=== PATIENT | female | born 1980 | race Caucasian/White ===

== ENCOUNTER 2017-07-26 11:02 | Emergency (ER) | payer SELFPAY ==
--- NOTE | 2017-07-26 12:19 | UC ---
General HPI - HPI Summary HPI Summary: [facility] the [facility] after being diagnosed with bipolar disorder patient reports helped her very much patient's been out of [facility] 3 days.. Patient states she was not released with medications she is now beginning to feel Symptoms of withdrawal, patient has doctor's appointment in [place] with a psychiatrist but it's not for 2 more weeks. We called the [facility] and confirmed the patient was released without medications confirmed her medications and medication doses - History of Current Complaint Chief Complaint: UCMedRefill Stated Complaint: MED REFILL Time Seen by Provider: 07/26/17 11:20 Hx Obtained From: Patient Onset/Duration: Gradual Onset, Lasting Days Pain Intensity: 0 - Allergy/Home Medications Allergies/Adverse Reactions: Allergies Allergy/AdvReac Type Severity Reaction Status Date / Time No Known Allergies Allergy Verified 07/26/17 11:23 Home Medications: Home Medications Bupropion XL* [Wellbutrin XL *] 150 mg PO DAILY 07/26/17 [History Confirmed ] LoraTADine TAB(NF) [Claritin 10 MG TAB(NF)] 10 mg PO DAILY 07/26/17 [History Confirmed 07/26/17] Meloxicam [Mobic] 15 mg PO 07/26/17 [History] OLANZapine [Zyprexa] 7.5 mg PO BEDTIME 07/26/17 [History Confirmed 07/26/17] PMH/Surg Hx/FS Hx/Imm Hx - Additional Past Medical History Additional PMH: 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 Previously Healthy: No Psychological History: Bipolar Disorder - Surgical History Surgical History: Yes Surgery Procedure, Year, and Place: tubal ligation - Family History Known Family History: Positive: None - Social History Occupation: Unemployed Lives: With Family Alcohol Use: None Substance Use Type: None Smoking Status (MU): Heavy Every Day Tobacco Smoker Review of Systems Constitutional: Negative Skin: Negative Eyes: Negative ENT: Negative Respiratory: Negative Cardiovascular: Negative Gastrointestinal: Negative Genitourinary: Negative Motor: Negative Neurovascular: Negative Musculoskeletal: Negative Neurological: Negative Psychological: Negative Is Patient Immunocompromised?: No All Other Systems Reviewed And Are Negative: Yes Physical Exam Triage Information Reviewed: Yes Appearance: Well-Appearing, No Pain Distress, Well-Nourished Vital Signs: Initial Vital Signs Temp 98.7 F 07/26/17 11:20 Pulse 88 07/26/17 11:20 Resp 18 07/26/17 11:20 BP 121/59 07/26/17 11:20 Pulse Ox 100 07/26/17 11:20 Vital Signs Reviewed: Yes Eye Exam: Normal Eyes: Positive: Conjunctiva Clear ENT Exam: Normal ENT: Positive: Normal ENT inspection, Hearing grossly normal. Negative: Trismus , Muffled voice, Hoarse voice Dental Exam: Normal Neck exam: Normal Neck: Positive: Supple, Nontender Respiratory Exam: Normal Respiratory: Positive: Chest non-tender, No respiratory distress, No accessory muscle use Cardiovascular Exam: Normal Cardiovascular: Positive: RRR - No, Pulses Normal, Brisk Capillary Refill Musculoskeletal Exam: Normal Musculoskeletal: Positive: Strength Intact, ROM Intact, No Edema Neurological Exam: Normal Neurological: Positive: Alert, Muscle Tone Normal Psychological Exam: Normal Psychological: Positive: Normal Response To Family Skin Exam: Normal Course/Dx - Course Course Of Treatment: meds refilled for one month, information and referral to treatment options in [facility] - Differential Dx - Multi-Symptom Provider Diagnoses: med refill, 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 One Day at A Time! - Billing Disposition and Condition Condition: STABLE Disposition: HOME
== END 2017-07-26 12:31 | disposition home or self-care (01) ==
LOC: UCEAST 11:02
DX: F11.21 Opioid dependence, in remission (principal); F31.9 Bipolar disorder, unspecified; Z76.0 Encounter for issue of repeat prescription; F17.200 Nicotine dependence, unspecified, uncomplicated
CPT/HCPCS: 99202; G0463

== ENCOUNTER 2019-06-09 10:01 | Emergency (ER) | payer OTHER ==
[2019-06-09] MEDS ORDERED: Diazepam TAB(*) 5 MG PO ONE (11:02)
[2019-06-09] MEDS ORDERED: Ketorolac INJ* 30 MG/ML 1 ML VIAL IV PUSH ONE (11:03)
--- NOTE | 2019-06-09 11:04 | ED ---
Complex/Multi-Sys Presentation - HPI Summary HPI Summary: Patient is a 39-year-old female who presents emergency department for right- sided back pain that radiates into right arm since yesterday. Patient states she woke up with symptoms. Patient notes intermittent paresthesias into right arm. Patient notes pain radiates into right side of chest and into her neck. Patient notes pain is worse with inspiration moving right shoulder. Symptoms are moderate in severity. Pt works in cleaning utilities at the hospital. Denies known exposure to call for positive patient. Patient notes family history of clotting disorder. Pt. notes she has never been tested and has never had a DVT. Denies past medical hx. Denies injury or fall. Pt. denies cough, SOB , fever, abd. pain, N/V. Pt. notes she was feeling SOB this morning from pain but since has improved. Denies fever, cough, sick contacts. - History Of Current Complaint Chief Complaint: EDChestWallPain Time Seen by Provider: 06/09/19 10:45 Hx Obtained From: Patient - Allergies/Home Medications Allergies/Adverse Reactions: Allergies Allergy/AdvReac Type Severity Reaction Status Date / Time No Known Allergies Allergy Verified 06/09/19 10:17 Home Medications: Home Medications Cyclobenzaprine TAB* [Flexeril 10 MG TAB*] 10 mg PO TID PRN #12 tab 06/09/19 [Rx ] Ibuprofen TAB* [Advil TAB*] 200 mg PO Q6H PRN 06/09/19 [History Confirmed ] Naproxen [Naproxen 500 mg tab] 500 mg PO BID #20 tablet 06/09/19 [Rx] PMH/Surg Hx/FS Hx/Imm Hx Previously Healthy: Yes - Surgical History Surgery Procedure, Year, and Place: tubal ligation Infectious Disease History: No Infectious Disease History: Denies: Traveled Outside the [place] in Last 30 Days - Family History Known Family History: Positive: None, Blood Disorder - mother and grandmother clotting d/o. - Social History Occupation: Employed Full-time Lives: With Family Alcohol Use: None Substance Use Type: Reports: None Smoking Status (MU): Former Smoker Review of Systems Constitutional: Negative Negative: Fever Positive: Chest Pain Respiratory: Negative Negative: Shortness Of Breath, Cough Gastrointestinal: Negative Negative: Abdominal Pain, Vomiting, Nausea Positive: Other - Right shoulder/back pain Skin: Negative Positive: Paresthesia All Other Systems Reviewed And Are Negative: Yes Physical Exam Triage Information Reviewed: Yes Vital Signs On Initial Exam: Initial Vitals Temp Pulse Resp BP Pulse Ox 97.1 F 62 16 120/70 100 06/09/19 10:14 06/09/19 10:14 06/09/19 10:14 06/09/19 10:14 06/09/19 10:14 Vital Signs Reviewed: Yes Appearance: Positive: Well-Appearing - Pt. sitting up in bed in NAD. Skin: Positive: Warm, Dry Head/Face: Positive: Normal Head/Face Inspection Eyes: Positive: Normal, EOMI Neck: Positive: Supple Respiratory/Lung Sounds: Positive: Clear to Auscultation, Breath Sounds Present. Negative: Rales, Rhonchi, Wheezes Cardiovascular: Positive: Normal, RRR Abdomen Description: Positive: Nontender, Soft Musculoskeletal: Positive: Other - Good right radial pulse. Limited ROM of right shoulder secondary to pain. Pain over right upper posterior back. Decreased strength in right arm secondary to pain. Full strength and ROM of right leg. Neurological: Positive: Normal, CN Intact II-III Psychiatric: Positive: Affect/Mood Appropriate Procedures - Sedation Patient Received Moderate/Deep Sedation with Procedure: No Diagnostics - Vital Signs Vital Signs Temp Pulse Resp BP Pulse Ox 06/09/19 10:46 62 106/52 100 06/09/19 10:45 59 98 06/09/19 10:14 97.1 F 62 16 120/70 100 - Laboratory Result Diagrams: 06/09/19 12:11 06/09/19 11:21 Lab Statement: Any lab studies that have been ordered have been reviewed, and results considered in the medical decision making process. Complex Multi-Symp Course/Dx Course Of Treatment: Pt. with c/o right posterior shoulder pain that radiates into chest. Stable VS. Afebrile. Suspect muscular. Given family hx will obtain labs, ddimer, cxr and ecg. Pt. given toradol and valium for pain. ECG done at 1007 shows a sinus rhythm of 63bpm, normal axis, appropriate intervals, no ST elevation or depression. Labs unremarkable including normal ddimer. CXR negative for acute findings per radiology. On re-exam pt.'s pain has improved. Results discussed. Suspect muscular in nature. Will dc pt. home with naproxen and flexeril. Apply warm compresses, gentle stretching and massage. Work note given. Will f.u with PCP and return to er if sxs change or worsen. - Diagnoses Provider Diagnoses: Muscle spasm, Atypical chest pain Discharge ED - Sign-Out/Discharge Documenting (check all that apply): Patient Departure - Discharge Plan Condition: Improved Disposition: HOME Prescriptions: Cyclobenzaprine TAB* [Flexeril 10 MG TAB*] 10 mg PO TID PRN #12 tab PRN Reason: Pain - Moderate Naproxen [Naproxen 500 mg tab] 500 mg PO BID #20 tablet Patient Education Materials: Muscle Spasm (ED) Forms: *Work Release Referrals: Tim PANDA,Jose Daniel Gonzalez [Primary Care Provider] - Additional Instructions: Please see your PCP in 2-3 days for recheck if pain persist Medication as directed Apply warm compresses Gentle stretching and massage Return to ER for difficulty breathing, increased pain, fever, or if concerned - Billing Disposition and Condition Condition: IMPROVED Disposition: Home
[2019-06-09 11:59] LABS: Troponin I 0.01 ng/mL (<0.03)
[2019-06-09] MEDS ORDERED: Ketorolac *IM* INJ* 60 MG/2 ML VIAL IM ONE (11:59)
[2019-06-09 12:06] LABS: Albumin 3.9 g/dL (3.2-5.2); Calcium 9.1 mg/dL (8.6-10.3); Potassium 4.4 mmol/L (3.5-5.0); Total Bilirubin 0.3 mg/dL (0.2-1.0)
[2019-06-09 12:11] LABS: Albumin/Globulin Ratio 1.4 (1-3); BUN/Creatinine Ratio 27.9 (8-20); EGFR African American 131.4 (>60); EGFR Non-African American 108.6 (>60); Globulin 2.8 g/dL (2-4); Total Protein 6.7 g/dL (6.4-8.9)
[2019-06-09 12:20] LABS: ABS Eosinophils 0.2 10^3/ul (0-0.6); ABS Lymphocytes 2.2 10^3/ul (1.0-4.8); ABS Monocytes 0.4 10^3/ul (0-0.8); ABS Neutrophils 6.2 10^3/ul (1.5-7.7); Eosinophil % 2.2 %; Hematocrit 39 % (35-47); Hemoglobin 13.1 g/dL (12.0-16.0); Lymphocyte % 24.5 %; Mean Corpuscular HGB Conc 34 g/dL (31-36); Mean Corpuscular Hemoglobin 28 pg (27-31); Mean Corpuscular Volume 84 fL (80-97); Mean Platelet Volume 8.6 fL (7.4-10.4); Nucleated Red Blood Cells % 0.1; Platelet Count 263 10^3/uL (150-450); Red Blood Count 4.65 10^6 /uL (3.70-4.87); Red Cell Distribution Width 16 % (10-15); White Blood Count 9.1 10^3/uL (3.5-10.8)
[2019-06-09 14:10] VITALS: BP 108/62
== END 2019-06-09 14:11 | disposition home or self-care (01) ==
LOC: ED 10:01
DX: M62.838 Other muscle spasm (principal); R07.89 Other chest pain; M54.9 Dorsalgia, unspecified; R20.2 Paresthesia of skin; Z87.891 Personal history of nicotine dependence; Z98.51 Tubal ligation status
CPT/HCPCS: 36415; 71045; 80053; 84484; 85025; 85379; 93005; 96372; 99284; A9270-GY; J1885

== ENCOUNTER 2019-07-07 07:25 | Emergency (ER) | payer OTHER ==
[2019-07-07] MEDS ORDERED: NS 0.9% 1000 ml BAG 1,000 ML IV ONE (07:49)
[2019-07-07 08:22] LABS: ABS Basophils 0.1 10^3/ul (0-0.2); ABS Eosinophils 0.2 10^3/ul (0-0.6); ABS Lymphocytes 2.1 10^3/ul (1.0-4.8); ABS Monocytes 0.4 10^3/ul (0-0.8); Eosinophil % 3.1 %; Hematocrit 40 % (35-47); Hemoglobin 13.2 g/dL (12.0-16.0); Lymphocyte % 29.9 %; Mean Corpuscular HGB Conc 33 g/dL (31-36); Mean Corpuscular Hemoglobin 28 pg (27-31); Mean Corpuscular Volume 85 fL (80-97); Mean Platelet Volume 8.6 fL (7.4-10.4); Platelet Count 265 10^3/uL (150-450); Red Blood Count 4.71 10^6 /uL (3.70-4.87); Red Cell Distribution Width 15 % (10-15)
[2019-07-07 08:25] LABS: Urine Appearance Clear; Urine Bilirubin Negative (Negative); Urine Blood Negative (Negative); Urine Color Straw; Urine Glucose Negative (Negative); Urine Ketones Negative (Negative); Urine Nitrite Negative (Negative); Urine Protein Negative (Negative); Urine Specific Gravity 1.002 (1.010-1.030); Urine Urobilinogen Negative (Negative)
[2019-07-07 08:27] LABS: INR 0.93 (0.82-1.09)
[2019-07-07 08:35] LABS: ALT 14 U/L (7-52); Albumin 4.5 g/dL (3.2-5.2); Albumin/Globulin Ratio 1.5 (1-3); Alkaline Phosphatase 63 U/L (34-104); BUN/Creatinine Ratio 17.6 (8-20); Blood Urea Nitrogen 13 mg/dL (6-24); C Reactive Protein 7.59 mg/L (<8.01); CO2 Carbon Dioxide 26 mmol/L (22-32); Calcium 9.3 mg/dL (8.6-10.3); Chloride 103 mmol/L (101-111); EGFR African American 105.2 (>60); EGFR Non-African American 86.9 (>60); Globulin 3.1 g/dL (2-4); Glucose 81 mg/dL (70-100); Sodium 137 mmol/L (135-145); Total Protein 7.6 g/dL (6.4-8.9)
[2019-07-07 08:37] LABS: Anion Gap 8 mmol/L (2-11)
[2019-07-07 08:41] LABS: HCG Pregnancy < 0.60 mIU/mL
[2019-07-07 10:37] VITALS: BP 91/63
== END 2019-07-07 10:36 | disposition home or self-care (01) ==
LOC: ED 07:25

== ENCOUNTER 2020-01-13 11:05 | Inpatient (IN) ==
[2020-01-13] MEDS ORDERED: NS 0.9% 1000 ml BAG 1,000 ML IV ONE (11:26)
[2020-01-13] MEDS ORDERED: Charcoal ACTIVATED 25 GM/120 ML BTL PO ONE (11:28)
[2020-01-13 12:09] LABS: ABS Eosinophils 0.2 10^3/ul (0-0.6); ABS Lymphocytes 2.8 10^3/ul (1.0-4.8); ABS Monocytes 0.6 10^3/ul (0-0.8); ABS Neutrophils 6.4 10^3/ul (1.5-7.7); Eosinophil % 1.9 %; Hematocrit 41 % (35-47); Hemoglobin 13.4 g/dL (12.0-16.0); Lymphocyte % 27.8 %; Mean Corpuscular HGB Conc 33 g/dL (31-36); Mean Corpuscular Hemoglobin 29 pg (27-31); Mean Corpuscular Volume 88 fL (80-97); Mean Platelet Volume 7.7 fL (7.4-10.4); Platelet Count 288 10^3/uL (150-450); Red Blood Count 4.65 10^6 /uL (3.70-4.87); Red Cell Distribution Width 14 % (10-15)
[2020-01-13 12:29] LABS: ALT 11 U/L (7-52); AST 14 U/L (13-39); Albumin 3.6 g/dL (3.2-5.2); Albumin/Globulin Ratio 1.5 (1-3); Alkaline Phosphatase 61 U/L (34-104); Anion Gap 3 mmol/L (2-11); BUN/Creatinine Ratio 7.5 (8-20); Blood Urea Nitrogen 7 mg/dL (6-24); CO2 Carbon Dioxide 28 mmol/L (22-32); Calcium 8.6 mg/dL (8.6-10.3); Chloride 108 mmol/L (101-111); Creatine Kinase 32 U/L (10-223); EGFR African American 80.8 (>60); EGFR Non-African American 66.8 (>60); Globulin 2.4 g/dL (2-4); Glucose 84 mg/dL (70-100); Potassium 4.1 mmol/L (3.5-5.0); Sodium 139 mmol/L (135-145)
[2020-01-13 12:34] LABS: HCG Pregnancy < 0.60 mIU/mL
[2020-01-13 12:36] LABS: Acetaminophen < 15 mcg/mL; Alcohol, S < 10 mg/dL (<10); Salicylate < 2.50 mg/dL (<30)
[2020-01-13 12:51] LABS: TSH Ultra Thyroid Stim Horm 0.72 mcIU/mL (0.34-5.60)
[2020-01-13 15:14] LABS: Urine Appearance Clear; Urine Bilirubin Negative (Negative); Urine Blood Negative (Negative); Urine Color Yellow; Urine Glucose Negative (Negative); Urine Ketones Negative (Negative); Urine Nitrite Negative (Negative); Urine Protein Negative (Negative); Urine Specific Gravity 1.006 (1.010-1.030); Urine Urobilinogen Negative (Negative)
[2020-01-13 15:16] LABS: Troponin I 0.01 ng/mL (<0.03)
[2020-01-13 15:35] LABS: Urine Benzodiazepine Screen None Detected (None Detect); Urine Cannabinoids Screen None Detected (None Detect); Urine Opiates Screen None Detected (None Detect)
[2020-01-13] MEDS ORDERED: Ondansetron 4 mg VIAL 2 MG/ML 2 ml VIAL IV PRN (17:33)
[2020-01-13] MEDS ORDERED: NS 0.9% w/ 20 Meq KCL 1000 ml 1,000 ML IV SCH (18:00)
[2020-01-14] MEDS ORDERED: Nicotine GUM 4MG FRUIT FLAVOR PO PRN (08:07)
[2020-01-14] MEDS ORDERED: Nicotine GUM 4MG FRUIT FLAVOR PO ONE (08:28)
[2020-01-14] MEDS ORDERED: Nicotine PATCH 14 MG/24 HR PATCH ONE (08:28)
[2020-01-14] MEDS: Nicotine PATCH 14 MG/24 HR PATCH TRANSDERM SCH (08:31)
[2020-01-14] MEDS ORDERED: Al Hydrox/Mg Hydrox/Simet LIQ 30 ML UDC PO PRN (13:36)
[2020-01-15] MEDS: Vitamin THERAPEUTIC TAB PO SCH (09:41)
[2020-01-15] MEDS: Nicotine GUM 4MG FRUIT FLAVOR PO PRN ×2 (09:41→19:59)
[2020-01-15] MEDS: Nicotine PATCH 14 MG/24 HR PATCH TRANSDERM SCH (09:42)
[2020-01-16] MEDS: Vitamin THERAPEUTIC TAB PO SCH (10:29)
[2020-01-16] MEDS: Nicotine PATCH 14 MG/24 HR PATCH TRANSDERM SCH ×2 (10:29→14:35)
[2020-01-16] MEDS: Nicotine GUM 4MG FRUIT FLAVOR PO PRN (14:35)
[2020-01-17 07:56] LABS: HDL Cholesterol 44.3 mg/dL
[2020-01-17] MEDS: Nicotine PATCH 14 MG/24 HR PATCH TRANSDERM SCH (08:10)
[2020-01-17] MEDS: Vitamin THERAPEUTIC TAB PO SCH (08:11)
[2020-01-17] MEDS: Nicotine GUM 4MG FRUIT FLAVOR PO PRN (08:11)
[2020-01-17] MEDS ORDERED: Influenza VAC *QUAD* 2020-21* 0.5 ML SYRINGE IM ONE (09:00)
[2020-01-18] MEDS: Nicotine PATCH 14 MG/24 HR PATCH TRANSDERM SCH (08:03)
[2020-01-18] MEDS: Vitamin THERAPEUTIC TAB PO SCH (08:04)
[2020-01-18] MEDS: Nicotine GUM 4MG FRUIT FLAVOR PO PRN ×3 (08:05→17:42)
[2020-01-19] MEDS: Nicotine PATCH 14 MG/24 HR PATCH TRANSDERM SCH (08:24)
[2020-01-19] MEDS: Vitamin THERAPEUTIC TAB PO SCH (08:25)
[2020-01-19] MEDS: Nicotine GUM 4MG FRUIT FLAVOR PO PRN ×2 (09:57→13:19)
[2020-01-20] MEDS: Nicotine GUM 4MG FRUIT FLAVOR PO PRN ×4 (08:13→20:23)
[2020-01-20] MEDS: Vitamin THERAPEUTIC TAB PO SCH (08:13)
[2020-01-20] MEDS: Nicotine PATCH 14 MG/24 HR PATCH TRANSDERM SCH (08:17)
[2020-01-21] MEDS: Vitamin THERAPEUTIC TAB PO SCH (08:22)
[2020-01-21] MEDS: Nicotine GUM 4MG FRUIT FLAVOR PO PRN (08:23)
[2020-01-21] MEDS: Nicotine PATCH 14 MG/24 HR PATCH TRANSDERM SCH (09:12)
[2020-01-21 10:45] VITALS: BP 110/57
== END 2020-01-21 11:35 | disposition home or self-care (01) | DRG 753 ==
LOC: MEDTELE 11:05 → ED 11:05 → MEDTELE 19:31 → BSU 01-14 11:42 → UNDODISOB 01-14 13:01 → BSU 01-14 15:51
PROVIDERS: ADMIT Hospitalist; ATTEND Psychiatry & Neurology Psychiatry